=== PATIENT | female | born 1990 | race Two or more races ===

== ENCOUNTER → 2016-09-09 | Outpatient (CLI) | payer OTHER ==
[~2016-09-09] MED LIST: ACET50TAOT PO; IBUP80TA PO; STUATAB PO
== END ==
LOC: M LRY 08:00
PROVIDERS: ATTEND Physician Assistant
DX: R30.0 Dysuria (principal)

== ENCOUNTER → 2016-09-09 | Outpatient (REF) | payer OTHER | LOC: M SFHCLERA 17:15 | PROVIDERS: ATTEND Physician Assistant | DX: R30.0 Dysuria (principal); Z53.9 Procedure and treatment not carried out, unspecified reason ==

== ENCOUNTER → 2016-12-22 | Outpatient (REF) | payer OTHER, MEDICAID | LOC: M LAB REF 17:26 | PROVIDERS: ATTEND Specialist | DX: R87.612 Low grade squamous intraepithelial lesion on cytologic smear of cervix (LGSIL) (principal) ==